=== PATIENT | female | born 1980 ===

== ENCOUNTER → 2018-08-22 | Outpatient (CLI) | payer OTHER ==
[2018-08-23 15:07] LABS: HPV 16 Negative (Negative); HPV 18 Negative (Negative); HPV OTHER HR TYPES Negative (Negative)
== END ==
LOC: LAB 11:28 → LAB SHORT 11:28
PROVIDERS: Registered Nurse Community Health
DX: Z12.4 Encounter for screening for malignant neoplasm of cervix (principal)
CPT/HCPCS: 87624; G0123

== ENCOUNTER → 2024-12-01 | Outpatient (CLI) | payer OTHER ==
[2024-12-01 20:49] LABS: Follicle Stimulating Hormone 4.5 mIU/ml; Thyroid Stimulating Hormone 2.19 uIU/mL (0.360-4.800)
== END ==
LOC: LAB 18:26 → LAB SHORT 18:26
PROVIDERS: Registered Nurse Community Health
DX: N92.6 Irregular menstruation, unspecified (principal); N95.1 Menopausal and female climacteric states
CPT/HCPCS: 83001; 83002; 84443